=== PATIENT | female | born 1955 | race Caucasian/White ===

== ENCOUNTER 2022-06-16 05:55 | Emergency (ER) | payer MEDICARE ==
[~2022-06-16] VITALS: Ht 160 cm; Wt 72.6 kg
[2022-06-16 06:58] LABS: BASOPHILS % (AUTO) 0.2 % (0.0-2.0); EOSINOPHILS % (AUTO) 0.2 % (0.0-6.0); HEMATOCRIT 30 % (33-45); HEMOGLOBIN 9.6 g/dL (11.5-14.8); LYMPHOCYTES # (AUTO) 2.9 K/uL (0.8-4.8); LYMPHOCYTES % (AUTO) 21.6 % (20.0-44.0); MEAN CORPUSCULAR HGB CONC 32 g/dl (31.0-36.0); MEAN CORPUSCULAR VOLUME 98 fL (82-100); MONOCYTES # (AUTO) 0.8 K/uL (0.1-1.30); MONOCYTES % (AUTO) 6.2 % (2.0-12.0); NEUTROPHILS # (AUTO) 9.8 K/uL (1.8-8.9); NEUTROPHILS % (AUTO) 71.8 % (43.0-81.0); PLATELET COUNT (AUTO) 257 K/uL (150-450); RED BLOOD CELL COUNT(AUTO) 3.02 MIL/uL (4.0-5.2); WHITE BLOOD COUNT (AUTO) 13.6 K/uL (4.3-11.0)
[2022-06-16 07:23] LABS: ALBUMIN 2.5 g/dL (3.4-5.0); BILIRUBIN,DIRECT 0.2 mg/dL (0.0-0.2); BILIRUBIN,TOTAL 0.6 mg/dL (0.2-1.0); CALCIUM, SERUM 8.2 mg/dL (8.5-10.1); CREATININE 1.1 mg/dL (0.6-1.3); POTASSIUM 3.7 mmol/L (3.5-5.1); TOTAL PROTEIN, SERUM 6.7 g/dL (6.4-8.2)
[2022-06-16] MEDS ORDERED: IV NS 0.9% 1,000 ML IV ONE (08:00)
[2022-06-16 12:17] LABS: BILIRUBIN,URINE NEGATIVE (NEGATIVE); COLOR,URINE YELLOW (YELLOW); LEUKOCYTE ESTERASE ,URINE MODERATE (NEGATIVE); NITRITE, URINE NEGATIVE (NEGATIVE); PROTEIN,URINE NEGATIVE (NEGATIVE); UGLUCOSE NEGATIVE (NEGATIVE); UROBILINOGEN,URINE 0.2 EU/dL (0.2)
[2022-06-16 12:28] LABS: BACTERIA,URINE Many /HPF (None Seen); MUCUS,URINE Many /LPF (None Seen)
[2022-06-16 12:29] LABS: SQUAMOUS EPITHELIAL CELL,UR Moderate /HPF (None Seen)
[2022-06-16] MEDS ORDERED: NITR100C PO (12:34)
[2022-06-16 13:00] VITALS: BP 129/83
== END 2022-06-16 13:16 | disposition home or self-care (01) ==
LOC: ER 05:59
DX: N39.0 Urinary tract infection, site not specified (principal); I69.30 Unspecified sequelae of cerebral infarction; I10 Essential (primary) hypertension; Z20.822 Contact with and (suspected) exposure to COVID-19; D64.9 Anemia, unspecified; N28.9 Disorder of kidney and ureter, unspecified
CPT/HCPCS: 99285; 96360; 71045; 87426; 87804; 85025; 80048; 87086; 83690; 80076; 81001; 36415; J7030; C9803

== ENCOUNTER 2023-06-10 10:36 | Emergency (ER) | payer MEDICARE ==
[~2023-06-10] VITALS: Ht 160 cm; Wt 74.8 kg
[~2023-06-10 10:36] MED LIST: NITR100C PO
[2023-06-10] MEDS ORDERED: FENTANYL PF 100MCG/2ML AMPUL IV ONE (11:30)
[2023-06-10] MEDS ORDERED: ONDANSETRON HCL/PF 4 MG/2 ML VIAL IV ONE (11:30)
[2023-06-10] MEDS ORDERED: ONDANSETRON HCL/PF 4 MG/2 ML VIAL ONE (11:35)
[2023-06-10] MEDS ORDERED: FENTANYL PF 100MCG/2ML AMPUL ONE (11:35)
[2023-06-10 13:16] VITALS: TEMP 97.8
[2023-06-10 13:23] VITALS: BP 129/62; O2SAT 95
== END 2023-06-10 13:27 | disposition home or self-care (01) ==
LOC: ER 10:52
DX: M24.411 Recurrent dislocation, right shoulder (principal); I10 Essential (primary) hypertension
CPT/HCPCS: 99284; 23650; 96374; 73030 ×2; J3010; J2405

== ENCOUNTER 2024-01-04 14:51 | Emergency (ER) | payer MEDICARE ==
[~2024-01-04] VITALS: Ht 160 cm; Wt 74.4 kg
[2024-01-04 16:29] VITALS: BP 134/77; TEMP 98.6; O2SAT 99
== END 2024-01-04 16:29 | disposition home or self-care (01) ==
LOC: ER 14:55
DX: M24.411 Recurrent dislocation, right shoulder (principal); I10 Essential (primary) hypertension
CPT/HCPCS: 73030-TC

== ENCOUNTER 2024-04-12 00:46 | Emergency (ER) | payer MEDICARE ==
[~2024-04-12] VITALS: Ht 160 cm; Wt 76.2 kg
[2024-04-12] MEDS ORDERED: HYDROCODONE/APAP 5/325MG TABLET ONE (03:33)
[2024-04-12] MEDS: HYDROCODONE/APAP 5/325MG TABLET PO ONE (03:34)
[2024-04-12 04:36] VITALS: BP 148/87; TEMP 97.7; O2SAT 98
== END 2024-04-12 04:37 | disposition home or self-care (01) ==
LOC: ER 00:51
DX: M24.411 Recurrent dislocation, right shoulder (principal); I10 Essential (primary) hypertension; Z79.899 Other long term (current) drug therapy; Z86.73 Personal history of transient ischemic attack (TIA), and cerebral infarction without residual deficits
CPT/HCPCS: 73030-TC; G0500

== ENCOUNTER 2024-12-26 14:19 | Emergency (ER) | payer MEDICARE ==
[~2024-12-26] VITALS: Ht 160 cm; Wt 67.6 kg
[2024-12-26] MEDS: ONDANSETRON 4 MG TAB.RAPDIS SL ONE (15:13)
[2024-12-26] MEDS: FENTANYL PF 100MCG/2ML AMPUL IV ONE (15:13)
[2024-12-26 15:29] VITALS: BP 144/66; TEMP 97.6; O2SAT 98
== END 2024-12-26 15:34 | disposition home or self-care (01) ==
LOC: ER 14:24
DX: M24.411 Recurrent dislocation, right shoulder (principal); I10 Essential (primary) hypertension; Z86.73 Personal history of transient ischemic attack (TIA), and cerebral infarction without residual deficits; Z79.899 Other long term (current) drug therapy
CPT/HCPCS: 73030-TC